=== PATIENT | male | born 1935 | race Caucasian/White ===

== ENCOUNTER 2023-10-07 14:59 | Emergency (ER) | payer MEDICARE ==
[2023-10-07 15:37] LABS: #Basophils 0.1 10x3/uL (0.0-0.2); #Eosinphils 0.1 10x3/uL (0.0-0.5); #Monocytes 0.5 10x3/uL (0.0-1.1); %Basophils 1.1 % (0.0-2.0); %Eosinophils 1.9 % (0.0-6.0); %Lymphocytes 25.1 % (18.0-47.0); %Monocytes 9.5 % (0.0-10.0); %Neutrophils 62.2 % (40.0-75.0); Hematocrit 40.3 % (38.8-50.0); Hemoglobin 14.2 g/dL (13.5-17.5); Mean Corpuscular HGB CONC 35.2 g/dL (32.0-36.0); Mean Platelet Volume 9.5 fl (7.4-10.4); Platelet Count 205 10x3/uL (150-450); Red Blood Cell (RBC) Count 4.58 10x6/uL (4.32-5.72); White Blood Cell (WBC) Count 4.7 10x3/uL (3.5-10.5)
[2023-10-07 15:49] LABS: ALT (SGPT) 440 U/L (8-55); AST (SGOT) 199 U/L (5-34); Albumin 4.3 g/dL (3.4-4.8); Alkaline Phosphatase 345 U/L (40-110); Anion Gap 12 mmol/L (10-20); BUN (Urea Nitrogen) 18 mg/dL (8.4-25.7); Calc. Creatinine Clearance 0 mL/min (70-130); Calcium 9.4 mg/dL (7.8-10.44); Carbon Dioxide 26 mmol/L (23-31); Chloride 103 mmol/L (98-107); Estimated GFR 56; Globulin 3.2 g/dL (2.4-3.5); Glucose 109 mg/dL (83-110); Lipase 145 U/L (8-78); Magnesium 2.2 mg/dL (1.6-2.6); Potassium 4.1 mmol/L (3.5-5.1); Protein, Total 7.5 g/dL (5.8-8.1); Sodium 137 mmol/L (136-145)
[2023-10-07 15:51] LABS: Actual Bicarbonate (HCO3v) 26.7 mEq/L (22-28); Analyzer IN Cardio CS ER; Calcium, Ionized (venous) 1.16 mmol/L (1.16-1.32); Chloride (VBG) 102 mmol/L (98-106); Hematocrit-VBG 46 % (42.0-52.0); Hemoglobin (Hb) 15.6 g/dL (12.6-17.4); Potassium (VBG) 4.03 mmol/L (3.70-5.30); Puncture Site Other Site; RapidComm Collect By CBN; Sodium 140 mmol/L (133-146); pH (venous) 7.339 (7.32-7.43)
[2023-10-07 16:12] LABS: Bilirubin 3+ (Negative); Blood, Urine 10 (Negative); Clarity Clear (Clear); Glucose, Urine (Dipstick) Normal (Negative); Ketone, Urine 5 mg/dL (Negative); Leukocyte 25 (Negative); Nitrite Negative (Negative); Protein, Urine (Dipstick) 15 mg/dl (Neg-Trace); Specific Gravity, Urine 1.015 (1.005-1.030)
[2023-10-07 16:14] LABS: SARS-CoV-2 NAA Rapid Test Not Detected (NotDetected)
[2023-10-07 16:34] LABS: Bacteria/HPF Rare-Few HPF (None Seen); CAUTI Indications for Culture Dysuria,urgency,freq; RBC/HPF None Seen HPF (0-3); Squamous Epithelial 0-3 HPF (0-3); WBC/HPF 0-3 HPF (0-3)
[2023-10-07 16:35] LABS: Urine Culture Reflex No No
[2023-10-07] MEDS ORDERED: diphenhydrAMINE 50 MG/ML VIAL ONE (21:30)
== END 2023-10-07 23:08 | disposition short-term general hospital (02) ==
LOC: CSHERS 14:59
DX: K86.89 Other specified diseases of pancreas (principal); R17 Unspecified jaundice
CPT/HCPCS: 0240U; 71045; 74177; 76705; 81001; 82805; 83690; 83735; 93005; 96374; 99285; 80053; 84443; 85025; J1200